=== PATIENT | female | born 1965 | race Caucasian/White ===

== ENCOUNTER → 2018-10-20 08:28 | Outpatient (CLI) | payer BC, SELFPAY ==
--- NOTE | 2018-10-20 12:25 | NEURO ---
NCS and/or EMG Patient Report DATE OF SERVICE: 10/20/18 Amanda Vazquez is a 53-year-old female who presents for electrodiagnostic testing of the lower limbs. She reports numbness tingling and burning in both feet, worse on the right side. Electrodiagnostic findings: Peroneal motor nerve demonstrates normal distal latency, amplitude and conduction velocity bilaterally. Normal tibial motor response bilaterally. Sensory responses are within normal limits. Prolonged tibial F-wave bilaterally. Needle EMG testing demonstrates no evidence of denervation in any muscles tested. Motor unit action potentials were normal amplitude and duration without polyphasic activity. Electrodiagnostic impression this is a normal electrodiagnostic study in the lower limbs. There is no elective diagnostic evidence for peripheral neuropathy or lumbosacral radiculopathy. If symptoms persist, would consider workup for small fiber neuropathy, which cannot be evaluated for on a standard electrodiagnostic examination. If there are any further questions, please do not hesitate to contact me.
--- NOTE | 2018-10-20 12:29 | NEURO_ITS ---
NCS and/or EMG Patient Report DATE OF SERVICE: 10/20/18 Amanda Vazquez is a 53-year-old female who presents for electrodiagnostic testing of the lower limbs. She reports numbness tingling and burning in both feet, worse on the right side. Electrodiagnostic findings: Peroneal motor nerve demonstrates normal distal latency, amplitude and conduction velocity bilaterally. Normal tibial motor response bilaterally. Sensory responses are within normal limits. Prolonged tibial F-wave bilaterally. Needle EMG testing demonstrates no evidence of d enervation in any muscles tested. Motor unit action potentials were normal amplitude and duration without polyphasic activity. Electrodiagnostic impression this is a normal electrodiagnostic study in the lower limbs. There is no elective diagnostic evidence for peripheral neuropathy or lumbosacral radiculopathy. If symptoms persist, would consider workup for small fiber neuropathy, which cannot be evaluated for on a standard electrodiagnostic examination. If there are any further questions, please do not hesitate to contact me.
== END ==
PROVIDERS: Family Provider Internal Medicine; PCP Internal Medicine
DX: G62.9 Polyneuropathy, unspecified (principal)
CPT/HCPCS: 95886; 95912